=== PATIENT | female | born 1990 | race Two or more races ===

== ENCOUNTER 2024-11-18 05:37 | Inpatient (IN) | payer OTHER ==
[~2024-11-18] VITALS: Ht 167.6 cm; Wt 93.4 kg
[2024-11-18] VITALS (9 sets, daily range): BP systolic 117–128; BP diastolic 82–100
[2024-11-18] MEDS ORDERED: RINGERS SOLUTION,LACTATED 1,000 ML IV SCH (08:00)
[2024-11-18] MEDS ORDERED: PRENATAL TABLE1 EAC1 PO (08:00)
[2024-11-18 08:53] LABS: URINE APPEARANCE Clear; URINE BILIRRUBIN Negative (NEGATIVE); URINE BLOOD Negative; URINE COLOR Yellow; URINE GLUCOSE Negative (NEGATIVE); URINE KETONE Negative (NEGATIVE); URINE LEUKOCYTE Negative; URINE NITRATE Negative; URINE PROTEIN 30 (NEGATIVE); URINE UROBILINOGEN 1.0 E.U./dl
[2024-11-18 08:59] LABS: URINE BACTERIA 78.0 uL (0.0-1933); URINE EPITHELIAL CELLS 2.2 uL (0.0-38.8); URINE RBC 7.9 uL (0.0-20.8); URINE WBC 3.3 uL (0.0-23.2)
[2024-11-18 09:06] LABS: URINE CAST 0.14 uL (0.0-1.40)
[2024-11-18 09:10] LABS: BASO % 0.2 % (0.1-1.2); EOS # 0.07 (0.04-0.54); EOS % 0.8 % (0.7-7.0); LYMPH # 2.10 (1.18-3.74); LYMPH % 25.0 % (19.3-53.1); MEAN PLATELET VOLUME 10.50 fl (9.4-12.4); MONO # 0.75 (0.24-0.82); MONO % 8.9 % (4.7-12.5); NEUT # 5.41 (1.56-6.13); NEUT % 64.5 % (34.0-71.1); RED CELL DISTRIBUTION WIDTH 13.4 % (11.6-14.4)
[2024-11-18 09:35] LABS: INR < 0.93
[2024-11-18] MEDS ORDERED: MISOPROSTOL 25 MCG/4 ML GEL.W.APPL VAG ONE (09:45)
[2024-11-18 10:19] LABS: ALT/SGPT 16.0 U/L (12-78); AST/SGOT 18.0 U/L (15-37); BILIRUBIN TOTAL 0.37 mg/dL (0.3-1.2); BUN CREA RATIO 19.0 (7.0-25.0); CREATININE SERUM 0.63 mg/dL (0.55-1.02); GFR 108.83; GLOBULINA 3.6 G/DL (2.4-3.5); GLUCOSE FASTING 76.0 mg/dL (65-100); OSMOLALITY SERUM 280.0 MOSM/KG (275-295)
[2024-11-18] MEDS ORDERED: OXYTOCIN 500 ML IV SCH (13:30)
[2024-11-18] MEDS ORDERED: MORPHINE SULFATE 4 MG/ML CARTRIDGE IV ONE (13:45)
[2024-11-18] MEDS ORDERED: ERYTHROMYCIN BASE OPHT 1GM EACH TUBE OP ONE (17:58)
[2024-11-18] MEDS ORDERED: OXYTOCIN 20 UNITS/1000ML RL PIGGYBAG IV ONE ×2 (17:58→20:07)
[2024-11-18] MEDS ORDERED: LIDOCAINE HCL 1% 10ML VIAL ONE (17:58)
[2024-11-18] MEDS ORDERED: CHLORHEXIDINE GLUCONATE 120 ML BOTTLE TOP ONE ×2 (17:58→21:30)
[2024-11-19 00:08] VITALS: BP 121/80
[2024-11-19 08:12] VITALS: BP 137/90
[2024-11-19 13:04] VITALS: BP 119/76
[2024-11-19 16:25] VITALS: BP 117/78
[2024-11-19 20:51] VITALS: BP 122/84
[2024-11-20] VITALS: BP 145/88
[2024-11-20 08:04] VITALS: BP 125/89
[2024-11-20 13:32] VITALS: BP 129/79
[2024-11-20 17:30] VITALS: BP 133/89
== END 2024-11-20 18:21 | disposition home or self-care (01) | DRG 807 ==
LOC: LDR 05:37 → OB/GYN 19:17
PROVIDERS: Internal Medicine Cardiovascular Disease; ADMIT Specialist; ATTEND Specialist
PROC: 10E0XZZ Delivery of Products of Conception, External Approach (ICD-10-PCS; principal; 2024-11-18)
PROC: 0KQM0ZZ Repair Perineum Muscle, Open Approach (ICD-10-PCS; 2024-11-18)
PROC: 4A1HXCZ Monitoring of Products of Conception, Cardiac Rate, External Approach (ICD-10-PCS; 2024-11-18)
DX: O71.82 Other specified trauma to perineum and vulva (principal); Z37.0 Single live birth; Z3A.39 39 weeks gestation of pregnancy